=== PATIENT | male | born 1955 | race Caucasian/White ===

== ENCOUNTER → 2023-09-20 | Outpatient (REF) | payer OTHER ==
[~2023-09-20] MED LIST: ASPIRIN325 MG PO; BASAGLAR K100 UNIT/1 SQ; LANTUS 3ML100 UNITS/ SC; LIPITOR20 MG PO; LISINOPRIL2.5 MG PO; METOPROLOL TART50 MG PO; NOVOLOG100 UNIT/1 SC; SYNTHROID50 MCG PO; VITAMIN D PO
== END ==
LOC: CT 11:39
PROVIDERS: ATTEND Family Medicine
DX: S76.012A Strain of muscle, fascia and tendon of left hip, initial encounter (principal); M25.552 Pain in left hip
CPT/HCPCS: 71045